=== PATIENT | female | born 1960 | race Caucasian/White ===

== ENCOUNTER 2023-12-28 10:32 | Outpatient (AMB) | payer OTHER, SELFPAY ==
--- NOTE | 2023-12-28 10:44 | A.SPINEOV_ITS ---
Intake Intake Visit Reasons: LBP Intake Note: Ms. Ladd is here today c/o back pain. 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 Two years ago she underwent an L3-4 oblique lumbar interbody fusion with extension of screws from her old fusion up to L3-4. She did well from that surgery until about maybe 3 or 4 months ago she started to notice an increase in back pain, but also pain going down into the front of her thighs when she is standing and walking. The pain can also be intense when she is lying down. She is trialed some basic conservative treatment in the form of [id number] pain medications, tincture of time and activity modifications but it does not seem to be helping. She knows these symptoms from her previous lumbar surgery and she is thinking that it starting to feel like radicular pain. She is having to use the shopping cart in the grocery store again etc.. She came today to review that. She also has a history of previous cervical laminectomy and hardware revision. She has some feelings of numbness in her fingertips as well as dropping things. She wished to discuss that as well. Her examination has pertinent findings right hand weakness which I would rate as 4- 5. She is diffusely hyperreflexic with Mayra sign on the left and clonus in both of her ankles. This can be a sign of her old neck surgery as there could have been spinal cord compression at that time. Impression: 63-year-old female presents for evaluation back pain and bilateral anterior thigh pain in the setting of previous lumbar fusion surgery twice, the last time being L3-4 oblique lumbar interbody fusion with Dr. Pinedo. It sounds to me like she is developing some adjacent segment disease with a nevaeh dicating leg pains and having used a shopping cart etc.. I am going to set of standing x-rays and a new lumbar MRI. Secondly, she did have a previous history of cervical laminectomy with hardware revision and is complaining of some tingling of her fingertips with weakness of her hands and she is hyperreflexic. Just as a precaution I am going to order cervical MRI as well to make sure she has not developing some adjacent segment issue up there as well. I will order plain x-rays as well. Total amount of time spent in this visit was 20 minutes in discussion of symptoms, ordering imaging and subsequent plan of care Dru Pinedo MD,PhD [facility] Orders: Orders XR cervical spine 4V Today M50.90 - Cervical disc disorder, unspecified, unspecified cervical region XR lumbar spine 4V min Today M51.36 - Other intervertebral disc degeneration, lumbar region MR lumbar spine wo con Today M51.36 - Other intervertebral disc degeneration, lumbar region MR cervical spine wo con Today M50.90 - Cervical disc disorder, unspecified, unspecified cervical region Coding Level of Care Code Est Pt Level 3 (83636) Diagnoses Cervical disc disorder M50.90 Lumbar degenerative disc disease M51.36
== END 2023-12-28 11:30 | disposition home or self-care (01) ==
PROVIDERS: PCP Family Medicine; Visit Provider Physician Assistant
DX: M50.90 Cervical disc disorder, unspecified, unspecified cervical region (principal); M51.36 Other intervertebral disc degeneration, lumbar region
CPT/HCPCS: 99213

== ENCOUNTER 2023-12-28 10:32 | Outpatient (REF) | payer OTHER, SELFPAY ==
--- NOTE | ~2023-12-28 | XR_ITS ---
EXAMINATION: XR CERVICAL SPINE CLINICAL INFORMATION: Cervical disc disorder, unspecified COMPARISON: None available. TECHNIQUE: AP, lateral and lateral flexion and extension views views of the cervical spine were obtained. FINDINGS: The bones are diffusely demineralized. The inferior aspect of C6 and C7 are obscured by the soft tissues of the patient's shoulder on the neutral lateral view. C6 and C7 are obscured on the lateral flexion and extension views. The patient is status post anterior fusion from C5-C7 with screws within the bodies C5 and C7. The hardware appears intact. There is loss of the disc space consistent with fusion at at C5-C6. There is no change in position or alignment with flexion and extension from C2-C5. Prevertebral soft tissues are within normal limits. XR/XR cervical spine 4V IMPRESSION: 1. Status post anterior fusion from C5-C7 without evidence of hardware complication. 2. No instability from C2-C5. 3. Limited evaluation of C6 and C7 due to the soft tissues of the patient's shoulders.
--- NOTE | ~2023-12-28 | XR_ITS ---
EXAMINATION: XR LUMBOSACRAL SPINE WITH FLEXION AND EXTENSION VIEWS CLINICAL INFORMATION: Other intervertebral disc degeneration, lumbar region COMPARISON: None available. TECHNIQUE: AP, lateral neutral, flexion and extension views of the lumbar spine. FINDINGS: The patient is status post L4 and L5 laminectomy and possible S1 laminectomy. There is marked curve of the lumbar spine, convex right. There are bilateral transpedicular screws and fusion rods from L3 through L5 with an interbody disc at L3-L4. The hardware is intact. There are 5 nonrib-bearing lumbar-type vertebral bodies. There is slight loss of height of the L4 vertebral body. The height of the remainder the lumbar vertebral bodies is well-maintained. There is grade 1 anterolisthesis of L4 with respect to L5 which is unchanged with flexion and extension. There is calcification of the mid and lower abdominal aorta without evidence of aneurysmal dilatation. XR/XR lumbar spine 4V min IMPRESSION: 1. Marked curve of the lumbar spine, convex right. 2. Status post L3-L5 fusion with interbody disc at L3-L4. 3. Grade 1 anterolisthesis of L4 with respect to L5, unchanged with flexion and extension.
== END 2023-12-28 10:33 | disposition home or self-care (01) ==
LOC: HO.HOSX 10:32
PROVIDERS: PCP Family Medicine; Visit Provider Physician Assistant
DX: M50.90 Cervical disc disorder, unspecified, unspecified cervical region (principal); M51.36 Other intervertebral disc degeneration, lumbar region
CPT/HCPCS: 72050; 72110; 99212